=== PATIENT | male | born 1990 | race African-American/Black ===

== ENCOUNTER 2019-09-13 10:18 | Emergency (ER) | payer BC, OTHER ==
[~2019-09-13] VITALS: Ht 172.7 cm; Wt 94.8 kg
--- NOTE | 2019-09-13 10:24 | NUR ---
EKG IN TRIAGE
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
[2019-09-13] MEDS ORDERED: HYDROcodone/APAP 5/325 TABLET PO ONE (11:00)
[2019-09-13] MEDS ORDERED: KETOROLAC 30 MG/1 ML IM ONE (11:00)
[2019-09-13] MEDS ORDERED: HYDROcodone/APAP 5/325 TABLET ONE (11:09)
[2019-09-13] MEDS ORDERED: KETOROLAC 60 MG/2 ML ONE (11:09)
[2019-09-13 11:26] VITALS: BP 145/79
== END 2019-09-13 11:58 | disposition home or self-care (01) ==
LOC: ED 11:41
DX: R07.89 Other chest pain (principal)
CPT/HCPCS: 71046; 93005; 96372; 99283; J1885